=== PATIENT | male | born 1960 | race Caucasian/White ===

== ENCOUNTER 2024-07-19 13:14 | Inpatient (IN) | payer OTHER, MEDICARE, SELFPAY ==
[2024-07-18] VITALS (8 sets, daily range): BP systolic 101–125; BP diastolic 64–87; BMI 23.3; BMI 23.1
[2024-07-18 09:53] LABS: % Basophils 0.4 % (0-2); % Eosinophils 1.2 % (0-6); % Immature Granulocytes 0.4 % (0-0.5); % Lymphocytes 10.7 % (20.5-51.1); % Monocytes 11.2 % (1.7-9.3); % Neutrophils 76.1 % (42.2-75.2); Absolute Eosinophils 0.1 10^3/uL (0-0.7); Absolute Lymphocytes 0.6 10^3/uL (1.2-3.4); Absolute Monocytes 0.6 10^3/uL (0.1-0.6); Absolute Neutrophils 4.3 10^3/uL (1.4-6.5); Hematocrit 45.6 % (39.0-52.0); Hemoglobin 15.1 g/dL (13.0-18.0); Mean Corp Hgb Conc. 33.1 g/dL (33.0-37.0); Mean Corpuscular Volume 102.7 fL (80.0-94.0); Mean Platelet Volume 9.9 fL (7.4-10.4); Nucleated Red Blood Cells % 0 % (-); Platelet Count 176 10^3/uL (130-400); Red Blood Cell Count 4.44 10^6/uL (4.70-6.10); Red Cell Dist. Width 14.8 % (11.5-14.5); White Blood Cell Count 5.6 10^3/uL (4.8-10.8)
[2024-07-18 10:07] LABS: ALT (SGPT) 46 U/L (0-50); AST (SGOT) 24 U/L (17-59); Albumin 3.5 g/dl (3.5-5.0); Alkaline Phosphatase 70 U/L (38-126); Blood Urea Nitrogen 18 mg/dl (9-20); COVID-19 Antigen Negative (Negative); Calcium 8.6 mg/dl (8.4-10.2); Carbon Dioxide 31 mmol/L (22-30); Chloride 103 mmol/L (98-107); Glucose 130 mg/dl (70-99); Potassium 3.5 mmol/L (3.5-5.1); Sodium 141 mmol/L (135-145); Total Bilirubin 1.4 mg/dl (0.2-1.3); Total Protein 5.9 g/dl (6.3-8.2); eGFR > 60.00
--- NOTE | 2024-07-18 10:17 | ED.GENMED ---
History of Present Illness
General
Chief Complaint: Cough
Source: patient
Exam Limitations: none
Time Seen by Provider: 07/18/24 10:04
Nursing documentation reviewed up to this point in time: agreed with
History of Present Illness
History of Present Illness:
Patient is a 63-year-old male presents today for evaluation. Patient has a history of multiple myeloma on oral chemotherapy (lenalidomide )previous stem cell transplant on oral chemotherapy followed by [facility]
presents to the ED for evaluation.
Patient has had intermittent cough for the past 2 weeks. Family doctor treated him for pneumonia and initially put him on Augmentin 2 weeks ago however patient had severe diarrhea from that and stopped. Patient persistently feels weak has had a
cough no shortness of breath. encouraged patient to come to the ER for possible dehydration and for continued symptoms.
Patient reports overall he does feel much better than he did 2 weeks ago. He is trying drink fluids. He does have a mild cough still he denies any shortness of breath.
Past History
Past History
ED Past Medical History: Cancer (Multiple myeloma), HTN and Other (CKD)
ED Past Surgical History: Orthopedic and Other
Social History
Tobacco: Non-smoker
Alcohol: None
Drug: None
Personal:
Living: with family
Review of Systems
Review of Systems
Allergies reviewed?: Yes
Other source history: family
All Other Systems: ROS reviewed and negative except as documented in HPI and ROS
Constitutional: Reports fatigue (mild fatigue but overall improving from 2 wks ago )
EENT: Reports no symptoms
Respiratory: Reports cough; Denies trouble breathing
Cardiac: Reports no symptoms
ABD/GI: Reports no symptoms
: Reports no symptoms
Musculoskeletal: Reports no symptoms
Skin: Reports no symptoms
Neurological: Reports no symptoms
Psychiatric: Reports no symptoms
Phy Exam
General Physical Exam
General Presentation: no apparent distress
General age: appears stated age
General Skin: warm and dry
General Habitus: normal
General Mental: alert
General Hydration: appears well hydrated
Course
Orders/Labs/Results
Orders:
Orders
07/18/24 09:35
CXR2 [CR Chest - 2 Views ] Urgent
Comment:
Reason For Exam: cough
07/18/24 09:40
CMP [Comprehensive Metabolic Panel] Urgent
COVID-19 Antigen Urgent
Source: Nasal Swab
Complete Blood Count/With Diff Urgent
Influenza A+B Rapid Molecular Urgent
CELSA Source: Nasal Swab
Specimen Description:
07/18/24 10:33
0.9% Sodium Chloride 1000 ml [Nss] 1,000 ml IV BOLUS
07/18/24 12:12
Piperacillin/Tazo 3.375 Gram [Zosyn] 3.375 gram in 50 ml IV NOW
Vancomycin [Vancocin] 2,000 mg 0.9% Sodium Chloride 500 ml [Nss] 500 ml IV NOW
07/18/24 13:01
Admit/Transfer Patient As Directed
Co-Sign Provider:
Level of Care: Observation services
Assign to:: Medical/Surgical
Physician / Group: morro
Diagnosis: post viral pneumonia
Code Status As Directed
Resuscitation Status: Full Code
PRN Pain Medication Management As Directed
May give lesser potent ordered pain med per pt: Yes
preference::
Protocol:: Medication orders for pain may be administered in a
manner that supports deferring to patient preference
when the pt is:
- Requesting an ordered lesser potent pain medication.
Least to most potent pain medications are defined
as: acetaminophen < NSAID < tramadol < opioids
(morphine, oxycodone, hydromorphone).
- Requesting a lesser dose of the same medication IF
ORDERED.
- Requesting a less intrusive route of administration
if both routes are prescribed by the provider (PO <
IV).
07/18/24 13:02
Legionella Urinary Antigen Urgent
CELSA Source: Urine
Specimen Description:
Respiratory Culture/Gram Stain Urgent
CELSA Source: Sputum
Specimen Description:
Strep pneumoniae Antigen Urgent
CELSA Source: Urine
Specimen Description:
07/18/24 Dinner
Regular
At Your Request: Full Participation
07/18/24 15:37
MRSA Screen Routine
CELSA Source: Nose
Specimen Description:
07/18/24 15:49
0.9% Sodium Chloride 1000 ml [Nss] 1,000 ml IV 100 mls/hr
Acetaminophen [Tylenol] 650 mg PO Q4HPRN PRN
07/18/24 15:49
Activity As Directed
Activity Level: As Tolerated
Vital Signs As Directed
Frequency: Per unit guidelines
DX Deep Vein Thrombosis Video Routine
07/18/24 17:00
Cefepime HCl [Maxipime] 1,000 mg IV Q12H
Doxycycline Hyclate [Vibramycin] 100 mg 0.9% Sodium Chloride 250 ml [Nss] 250 ml IV Q12H
07/18/24 20:00
Acyclovir [Zovirax] 400 mg PO BID
Heparin 5,000 units SC Q12
07/19/24 06:00
Complete Blood Count/With Diff IN AM
Comprehensive Metabolic Panel IN AM
07/19/24 08:00
Ascorbic Acid [Vitamin C] 500 mg PO DAILY
Cholecalciferol (Vitamin D3) [VITAMIN D3 (cholecalciferol)] 25 mcg PO DAILY
Vitamin E 400 units PO DAILY
Abnormal Lab Results
07/18/24
09:40
RBC 4.44 L 10^6/uL
(4.70-6.10)
MCV 102.7 H fL
(80.0-94.0)
MCH 34.0 H pg
(27.0-31.0)
RDW 14.8 H %
(11.5-14.5)
Absolute Lymphs (auto) 0.6 L 10^3/uL
(1.2-3.4)
Neutrophils % 76.1 H %
(42.2-75.2)
Lymphocytes % 10.7 L %
(20.5-51.1)
Monocytes % 11.2 H %
(1.7-9.3)
Carbon Dioxide 31 H mmol/L
(22-30)
Glucose 130 H mg/dl
(70-99)
Total Bilirubin 1.4 H mg/dl
(0.2-1.3)
Total Protein 5.9 L g/dl
(6.3-8.2)
07/18/24 09:40
07/18/24 09:40
Vital Signs
Initial and Last Documented VS:
Initial Vital Signs
Temp Pulse Resp BP Pulse Ox
97.6 F 100 20 104/76 95
07/18/24 09:27 07/18/24 09:27 07/18/24 09:27 07/18/24 09:27 07/18/24 09:27
Last Documented Vital Signs
Temp Pulse Resp BP Pulse Ox
98.0 F 78 18 123/64 98
07/18/24 16:02 07/18/24 16:02 07/18/24 16:02 07/18/24 16:02 07/18/24 16:02
Building Principal consulted with Physician
Building Principal consulted with physician?: Yes
Name of Physician Consulted: Rodolfo
MDM/Problems Addressed
Differential Diagnosis Includes:
Not limited to influenza, pneumonia
MDM/Problems Addressed:
Patient is a 63-year-old male with history of multiple myeloma stem cell transplant on oral chemotherapy presents for cough for the past several weeks was on antibiotic, Augmentin then developed diarrhea persistent cough some mild fatigue. Patient
found to be flu positive x-ray reading by myself and ED physician shows bilateral pneumonia would recommend admission as patient is immunocompromise. His white count is normal he is not hypoxic and nontachycardic.
With patient being compromised and flu positive vancomycin and Zosyn ordered. Patient is on oral chemo we do not have that here in [place] pharmacy patient will bring from home.
*Critical Care Note
Total Time (30-74mins, 75-104mins- exclusive of procedures): Not Applicable
ED Attending Note
-
Portions of this chart may have been created with voice recognition software.� Occasional wrong word or��sound alike� substitutions may have occurred due to the inherent limitations of voice recognition software.
Discharge Plan
Departure
Patient Disposition: Admit
Date of Disposition: 07/18/24
Time of Disposition: 12:13
Admit to: Med/Surg
Admit to doctor: hospitalist
Presentation/result/management discussed w/ accepting MD/DO: Hospitalist
Patient with high blood pressure during this ER visit?: No
Condition: Fair
Covid-19: Not Applicable
Discharge Problem:
Influenza A, bilateral pneumonia
Interventions
Interventions:
*Risk Screen - Suicide Last Done: 07/18/24 11:16
*General Assessment Last Done: 07/18/24 11:16
*Neglect/Abuse Screening Last Done: 07/18/24 11:16
ED- Fall Risk Assessment Last Done: 07/18/24 11:16
*ED COVID-19 Vaccine History Last Done: 07/18/24 09:27
*Nursing Disposition Last Done: 07/18/24 15:55
ED- Pulmonary Assessment Last Done: 07/18/24 11:16
Discharge Date and Time
Discharge Date/Time: 07/18/24 15:57
[2024-07-18] MEDS: NSS 1000 IV ×2 (11:27→16:34)
[2024-07-18] MEDS: ZOSYN 50 IV (12:28)
[2024-07-18] MEDS: VANCOCIN 540 MG IV (12:41)
--- NOTE | 2024-07-18 13:05 | HPS.HSE ---
Family Physician
-
Family Physician: Tato iLndo
Chief Complaint
-
cough
History of Present Illness
63-year-old male past medical history of multiple myeloma on lenalidomide status post prior stem cell transplant followed at [place], pancytopenia, hypertension, CKD 3A, presenting for cough, weakness for the past 2 weeks. His family
doctor treated him with Augmentin which he took for 1 week and then developed diarrhea and stopped taking. He took Imodium for the diarrhea which is since resolved. He denies any fevers or chills. Denies shortness of breath. Denies chest pain.
Denies vomiting. He does not feel worse than his symptoms 2 weeks ago but he is not improving.
He denies smoking or alcohol use.
Medical History
Past Medical History
Past Medical History: Reports Other (multiple myeloma on lenalidomide status post prior stem cell transplant followed at [place], pancytopenia, hypertension, CKD 3A,)
Past Surgical History: Reports None
Social History
Tobacco: Non-smoker
Alcohol: None
Drug: None
Family History
Family History: Not pertinent
Allergies / Home Medications
Allergies reflects when Allergies were last updated in [employer].
Home Medications with original date entered in [employer]
Allergy/Medication List:
Allergies
Allergy/AdvReac Type Severity Reaction Status Date / Time
No Known Allergies Allergy Verified 07/18/24 09:33
Home Medications
acyclovir 400 mg tablet 400 mg PO BID 07/18/24
ascorbic acid (vitamin C) 500 mg tablet (Vitamin C) 500 mg PO DAILY 07/18/24
cholecalciferol (vitamin D3) 25 mcg (1,000 unit) tablet (Vitamin D3) 25 mcg PO DAILY 07/18/24
coQ10 (ubiquinol) 100 mg capsule 100 mg PO DAILY 07/18/24
ergocalciferol (vitamin D2) 400 unit capsule 10 mcg PO DAILY 07/18/24
lenalidomide 5 mg capsule 5 mg PO HS 07/18/24
turmeric 400 mg capsule 400 mg PO DAILY 07/18/24
vitamin E 268 mg (400 unit) capsule 268 mg PO DAILY 07/18/24
Review of Systems
-
History Source: Patient
A 12 point ROS was completed and negative except as noted: Yes
Constitutional: Reports No Symptoms
EENT: Reports No Symptoms
Respiratory: Reports See HPI
Cardiac: Reports No Symptoms
Abdomen/GI: Reports No Symptoms
: Reports No Symptoms
Musculoskeletal: Reports No Symptoms
Skin: Reports No Symptoms
Neurological: Reports No Symptoms
Endocrine: Reports No Symptoms
Hematologic/Lymphatic: Reports No Symptoms
Psych: Reports No Symptoms
Physical Exam
Vital Signs
Vital Signs
Temp Pulse Resp BP Pulse Ox
97.6 F 100 20 104/76 95
07/18/24 09:27 07/18/24 09:27 07/18/24 09:27 07/18/24 09:27 07/18/24 09:27
Physical Exam
General: Well Developed, Well Nourished and No Apparent Distress
HEENT: NormoCephalic, Moist mucous membranes and Atraumatic
Respiratory: Clear
Cardiac: S1/S2 and Regular Rhythm; No Murmur or Rub
GI: Soft, Non Tender, Non Distended and Normal Bowel Sounds; No Organomegaly
Rectal: Deferred by Provider
Musculoskeletal: No Clubbing, No Cyanosis and No Edema
Skin: No Rash
Neuro: Nonfocal/grossly intact
Laboratory Results
-
07/18/24 09:40
07/18/24 09:40
Laboratory Results
Total Bilirubin 1.4 mg/dl (0.2-1.3) H 07/18/24 09:40
AST 24 U/L (17-59) 07/18/24 09:40
ALT 46 U/L (0-50) 07/18/24 09:40
Alkaline Phosphatase 70 U/L (38-126) 07/18/24 09:40
Data Reviewed
-
Lab Data: Labs Reviewed by me
Old Records: Reviewed
Impression/Plan
-
IMPRESSION:
PLAN:
# Influenza A infection
# Postviral bacterial pneumonia
-Chest x-ray appears to show multifocal infiltrates, report pending
-Check sputum culture
-Check MRSA, Legionella, strep antigen
-Continue IV fluids
-Out of window for Tamiflu
-Given vancomycin/Zosyn in ER but will continue with cefepime/doxycycline as he did not receive atypical coverage
Multiple myeloma status post stem still transplant
-Hold Revlimid
-Continue prophylactic acyclovir
Essential hypertension
CKD 3A
-Renal function at baseline
Full code
DVT prophylaxis�heparin
Regular diet
--- NOTE | 2024-07-18 15:52 | EDRN ---
Patient taken to room 2136 on stretcher by certified scrub tech.
[2024-07-18] MEDS: STERILE WATER FOR INJECTION 10 ML IV (17:39)
[2024-07-18] MEDS: VIBRAMYCIN 260 MG IV (17:40)
[2024-07-18] MEDS: MAXIPIME 1000 MG IV (17:40)
[2024-07-18] MEDS: ZOVIRAX PO (21:22)
[2024-07-19] MEDS: NSS 1000 IV ×3 (03:07→21:35)
[2024-07-19] MEDS: VIBRAMYCIN 260 MG IV (05:03)
[2024-07-19] MEDS: MAXIPIME 1000 MG IV ×2 (05:27→17:44)
[2024-07-19] MEDS: STERILE WATER FOR INJECTION 10 ML IV ×2 (05:28→17:44)
[2024-07-19 06:42] LABS: % Basophils 0.6 % (0-2); % Eosinophils 2.5 % (0-6); % Immature Granulocytes 0.8 % (0-0.5); % Lymphocytes 18.4 % (20.5-51.1); % Monocytes 15.6 % (1.7-9.3); % Neutrophils 62.1 % (42.2-75.2); Absolute Eosinophils 0.1 10^3/uL (0-0.7); Absolute Lymphocytes 0.7 10^3/uL (1.2-3.4); Absolute Monocytes 0.6 10^3/uL (0.1-0.6); Absolute Neutrophils 2.2 10^3/uL (1.4-6.5); Hematocrit 38.6 % (39.0-52.0); Hemoglobin 12.8 g/dL (13.0-18.0); Mean Corp Hgb Conc. 33.2 g/dL (33.0-37.0); Mean Corpuscular Hgb 33.8 pg (27.0-31.0); Mean Corpuscular Volume 101.8 fL (80.0-94.0); Mean Platelet Volume 9.9 fL (7.4-10.4); Nucleated Red Blood Cells % 0 % (-); Platelet Count 161 10^3/uL (130-400); Red Blood Cell Count 3.79 10^6/uL (4.70-6.10); Red Cell Dist. Width 14.9 % (11.5-14.5); White Blood Cell Count 3.6 10^3/uL (4.8-10.8)
[2024-07-19 07:19] VITALS: BP 122/79
[2024-07-19 07:20] LABS: ALT (SGPT) 36 U/L (0-50); AST (SGOT) 21 U/L (17-59); Albumin 2.6 g/dl (3.5-5.0); Alkaline Phosphatase 60 U/L (38-126); Blood Urea Nitrogen 11 mg/dl (9-20); Calcium 7.5 mg/dl (8.4-10.2); Carbon Dioxide 26 mmol/L (22-30); Chloride 107 mmol/L (98-107); Estimated Creatinine Clearance 115 ml/min; Glucose 108 mg/dl (70-99); Potassium 3.2 mmol/L (3.5-5.1); Sodium 138 mmol/L (135-145); Total Bilirubin 1.1 mg/dl (0.2-1.3); Total Protein 4.6 g/dl (6.3-8.2); eGFR > 60.00
[2024-07-19] MEDS: VITAMIN E 400 UNITS PO (08:06)
[2024-07-19] MEDS: VITAMIN D3 (cholecalciferol) 25 MCG PO (08:06)
[2024-07-19] MEDS: ZOVIRAX 400 MG PO ×2 (08:06→21:34)
[2024-07-19] MEDS: VITAMIN C 500 MG PO (08:06)
--- NOTE | 2024-07-19 10:34 | CM ---
Addendum entered by Katlyn Zhou 07/19/24 16:05:
tt from UR - LOC changed to inpatient - IMM explained & signed. In chart
Original Note:
Met with patient at bedside.
Dx: post viral pneumonia, influenza A positive
PMH: multiple myeloma on lenalidomide status post prior stem cell transplant followed at [place], pancytopenia
OBS status
IA completed
Lives with in multi-story home, 0 steps to enter, flight of stairs to bed/bath
PLOF: Independent, no assistive device
Denies HH/Rehab
PCP: Tato Lindo
PHARMACY: [address], [place]
PLAN: home, no needs anticipated
states will transport
[2024-07-19] MEDS: KCL ELIXIR 40 MEQ PO (11:08)
--- NOTE | 2024-07-19 11:55 | W.PN.HOSP.TC ---
Today's Communication/Plan
-
f/u cultures
abx
k repletion
Assessment / Plan
Assessment / Plan
Physical Exam
General: Well Developed, Well Nourished and No Apparent Distress
HEENT: NormoCephalic, Moist mucous membranes and Atraumatic
Respiratory: Clear
Cardiac: S1/S2 and Regular Rhythm; No Murmur or Rub
GI: Soft, Non Tender, Non Distended and Normal Bowel Sounds; No Organomegaly
Rectal: Deferred by Provider
Musculoskeletal: No Clubbing, No Cyanosis and No Edema
Skin: No Rash
Neuro: Nonfocal/grossly intact
PLAN:
# Influenza A infection
# Postviral multifocal pneumonia
-Chest x-ray appears to show multifocal infiltrates, report pending
-Check sputum culture
-Check MRSA negative
- F/u Legionella, strep antigen
-Continue IV fluids
-Out of window for Tamiflu
-Given vancomycin/Zosyn in ER but will continue with cefepime/doxycycline as he did not receive atypical coverage
-will need repeat imaging outpatient to monitor improvement
#Leukopenia
�Probably secondary to acute infection
� Monitor
#Hypokalemia
Monitor and replete
Multiple myeloma status post stem still transplant
-Hold Revlimid
-Continue prophylactic acyclovir
-apparently on eliquis for dvt ppx
Essential hypertension
CKD 3A
-Renal function at baseline
Full code
DVT prophylaxis�Eliquis
Regular diet
Anticipated Discharge: Within 24 hours
Subjective/Interval History
-
Date of Service: July 19, 2024
No acute events overnight
Objective Data
-
Labs:
Laboratory Results
07/19/24
05:51
WBC 3.6 L
Hgb 12.8 L
Hct 38.6 L
Plt Count 161
Sodium 138
Potassium 3.2 L
Chloride 107
Carbon Dioxide 26
BUN 11
Creatinine 0.7
Glucose 108 H
Calcium 7.5 L
Total Bilirubin 1.1
AST 21
ALT 36
Alkaline Phosphatase 60
Vital Signs:
Vital Signs
Temp Pulse Resp BP Pulse Ox
98.1 F 78 18 122/79 97
07/19/24 07:19 07/19/24 07:19 07/19/24 07:19 07/19/24 07:19 07/19/24 07:19
I&O
07/18/24 07/19/24 07/20/24
06:59 06:59 06:59
Intake Total 1600 / 1600
Output Total 1050 / 1050
Balance 550 / 550
Review of Systems
-
History Source: Patient
All other systems: Not reviewed unless documented
Physical Exam
-
General: No Apparent Distress
HEENT: PERRLA
Respiratory: Clear to Auscultation
Cardiac: Regular Rhythm and S1/S2
GI: Soft and Nontender
Skin: Warm and Dry; Negative Rash
Neuro: AO x 3
Psych: Calm
Data Reviewed
-
Diagnostic Radiology: Report Reviewed by me
[2024-07-19 15:13] VITALS: BP 139/80
[2024-07-19] MEDS: VIBRAMYCIN 100 MG PO (21:34)
[2024-07-19] MEDS: ELIQUIS 2.5 MG PO (21:35)
[2024-07-19 22:50] VITALS: BP 95/64
[2024-07-20 07:05] VITALS: BP 130/91
[2024-07-20 07:24] VITALS: BP 130/91
[2024-07-20] MEDS: STERILE WATER FOR INJECTION IV (07:25)
[2024-07-20] MEDS: MAXIPIME IV (07:25)
[2024-07-20 07:45] LABS: Hematocrit 41.1 % (39.0-52.0); Hemoglobin 13.8 g/dL (13.0-18.0); Mean Corp Hgb Conc. 33.6 g/dL (33.0-37.0); Mean Corpuscular Hgb 34.2 pg (27.0-31.0); Platelet Count 161 10^3/uL (130-400); Red Blood Cell Count 4.03 10^6/uL (4.70-6.10); Red Cell Dist. Width 14.8 % (11.5-14.5); White Blood Cell Count 2.9 10^3/uL (4.8-10.8)
[2024-07-20 08:13] VITALS: BP 130/91
[2024-07-20 08:28] LABS: ALT (SGPT) 45 U/L (0-50); AST (SGOT) 25 U/L (17-59); Albumin 2.9 g/dl (3.5-5.0); Alkaline Phosphatase 63 U/L (38-126); Blood Urea Nitrogen 11 mg/dl (9-20); Calcium 8.3 mg/dl (8.4-10.2); Carbon Dioxide 26 mmol/L (22-30); Chloride 107 mmol/L (98-107); Estimated Creatinine Clearance 115 ml/min; Glucose 112 mg/dl (70-99); Potassium 3.6 mmol/L (3.5-5.1); Sodium 139 mmol/L (135-145); Total Bilirubin 1.2 mg/dl (0.2-1.3); Total Protein 5.1 g/dl (6.3-8.2); eGFR > 60.00
[2024-07-20] MEDS: ELIQUIS 2.5 MG PO (09:29)
[2024-07-20] MEDS: ZOVIRAX 400 MG PO (09:29)
[2024-07-20] MEDS: VITAMIN E 400 UNITS PO (09:29)
[2024-07-20] MEDS: VITAMIN C 500 MG PO (09:30)
[2024-07-20] MEDS: VIBRAMYCIN 100 MG PO (09:30)
[2024-07-20] MEDS: VITAMIN D3 (cholecalciferol) 25 MCG PO (09:30)
[2024-07-20 09:52] VITALS: BMI 23.1
--- NOTE | 2024-07-20 10:47 | W.PN.HOSP.TC ---
Addendum entered and electronically signed by Jozef Caban MD 07/20/24 17:07:
[id number]
Original Note:
Today's Communication/Plan
-
Discharge to complete antibiotic course
Follow-up CBC within 3 to 5 days
Repeat chest imaging with PCP/oncologist
Follow-up PCP, oncologist outpatient
Assessment / Plan
Assessment / Plan
Physical Exam
General: Well Developed, Well Nourished and No Apparent Distress
HEENT: NormoCephalic, Moist mucous membranes and Atraumatic
Respiratory: Clear
Cardiac: S1/S2 and Regular Rhythm; No Murmur or Rub
GI: Soft, Non Tender, Non Distended and Normal Bowel Sounds; No Organomegaly
Rectal: Deferred by Provider
Musculoskeletal: No Clubbing, No Cyanosis and No Edema
Skin: No Rash
Neuro: Nonfocal/grossly intact
PLAN:
# Influenza A infection
# Postviral multifocal pneumonia
-Chest x-ray appears to show multifocal infiltrates
�Sputum culture is negative
-MRSA negative
- F/u Legionella, strep antigen negative
-Out of window for Tamiflu
-Given vancomycin/Zosyn in ER but will continue with cefepime/doxycycline as he did not receive atypical coverage -discharged to complete total 5-day course of doxycycline, 10-day course of cefepime to cefdinir.
-will need repeat imaging outpatient to monitor improvement and to ensure this is in fact multifocal pneumonia with improvement versus pulmonary fibrosis�follow-up closely PCP/oncology
#Leukopenia
�Probably secondary to acute infection
� Monitor
� Follow-up CBC outpatient
#Hypokalemia
Monitor and replete
Multiple myeloma status post stem still transplant
-Hold Revlimid until antibiotic course completed
-Continue prophylactic acyclovir
-apparently on eliquis for dvt ppx
Essential hypertension
CKD 3A
-Renal function at baseline
Full code
DVT prophylaxis�Eliquis
Regular diet
More than 30 minutes spent in discharge including
Final examination of the patient
Summarizing hospital stay
Instructions for continuing care to all relevant caregivers
Preparation of discharge records, prescriptions, and referral forms
Total time spent (38 in minutes):
Anticipated Discharge: Today
Subjective/Interval History
-
Date of Service: July 20, 2024
No acute events, feels well
Objective Data
-
Labs:
Laboratory Results
07/20/24
06:18
WBC 2.9 L
Hgb 13.8
Hct 41.1
Plt Count 161
Sodium 139
Potassium 3.6
Chloride 107
Carbon Dioxide 26
BUN 11
Creatinine 0.7
Glucose 112 H
Calcium 8.3 L
Total Bilirubin 1.2
AST 25
ALT 45
Alkaline Phosphatase 63
Vital Signs:
Vital Signs
Temp Pulse Resp BP Pulse Ox
97.9 F 75 18 130/91 96
07/20/24 07:05 07/20/24 07:24 07/20/24 07:05 07/20/24 07:24 07/20/24 09:33
I&O
07/19/24 07/20/24 07/21/24
06:59 06:59 06:59
Intake Total 1600 / 1600 4020 / 4020
Output Total 1050 / 1050 1100 / 1100
Balance 550 / 550 2920 / 2920
Review of Systems
-
History Source: Patient
All other systems: Not reviewed unless documented
Physical Exam
-
General: No Apparent Distress
HEENT: PERRLA
Respiratory: Clear to Auscultation
Cardiac: Regular Rhythm and S1/S2
GI: Soft and Nontender
Skin: Warm and Dry; Negative Rash
Neuro: AO x 3
Psych: Calm
Data Reviewed
-
Diagnostic Radiology: Report Reviewed by me
--- NOTE | 2024-07-20 10:49 | CM ---
plan: d/c home no needs.
--- NOTE | 2024-07-20 10:50 | W.DS.TRANS ---
DC Summary - [employer]
-
Discharge Instructions:
Discharge Diagnosis/Procedures influenza pneumonia
Diet Low Cholesterol,Low Fat
Blood Work cbc in 3-5 days
Others Tests Will need repeat imaging of the chest including
possible chest CT to evaluate improvement/
resolution of pulmonary findings which are
suspected to be due to multifocal pneumonia.
Pulmonary fibrosis cannot be excluded and
therefore in setting of chemotherapy, imperative
to follow-up with repeat imaging with PCP,
oncology.
Instructions:
Stand-Alone Forms:
Changes to Home Medications: Yes
Discharge Medications:
DC Medications w/original date entered in [employer]
acyclovir 400 mg tablet 400 mg PO BID Infection 07/18/24
ascorbic acid (vitamin C) 500 mg tablet (Vitamin C) 500 mg PO DAILY Supplement 07/18/24
cholecalciferol (vitamin D3) 25 mcg (1,000 unit) tablet (Vitamin D3) 25 mcg PO DAILY Supplement 07/18/24
coQ10 (ubiquinol) 100 mg capsule 100 mg PO DAILY Supplement 07/18/24
ergocalciferol (vitamin D2) 400 unit capsule 10 mcg PO DAILY Supplement 07/18/24
lenalidomide 5 mg capsule 5 mg PO HS Rheumatoid Arthritis 07/18/24
turmeric 400 mg capsule 400 mg PO DAILY Supplement 07/18/24
vitamin E 268 mg (400 unit) capsule 268 mg PO DAILY Supplement 07/18/24
apixaban 2.5 mg tablet (Eliquis) 2.5 mg PO DAILY #0 tabs 07/20/24
cefdinir 300 mg capsule 300 mg PO Q12H 8 days #16 caps 07/20/24
doxycycline hyclate 100 mg capsule 100 mg PO BID 3 days #6 caps 07/20/24
Home Medication Changes
cefdinir 300 mg capsule 300 mg PO Q12H 8 days #16 caps 07/20/24
doxycycline hyclate 100 mg capsule 100 mg PO BID 3 days #6 caps 07/20/24
Pending Results: No
== END 2024-07-20 13:30 | disposition home or self-care (01) | DRG 194 ==
LOC: 2 NORTH 13:14
PROVIDERS: Emergency Medicine; ADMITTING PHYSICIAN Hospitalist; ATTENDING PHYSICIAN Internal Medicine; EMERGENCY PHYSICIAN Emergency Medicine; FAMILY PHYSICIAN Family Medicine
DX: J10.00 Influenza due to other identified influenza virus with unspecified type of pneumonia (principal); C90.00 Multiple myeloma not having achieved remission; Z94.84 Stem cells transplant status; I12.9 Hypertensive chronic kidney disease with stage 1 through stage 4 chronic kidney disease, or unspecified chronic kidney disease; N18.31 Chronic kidney disease, stage 3a; E87.6 Hypokalemia; Z79.61 Long term (current) use of immunomodulator; Z20.822 Contact with and (suspected) exposure to COVID-19
CPT/HCPCS: 71046; 80053; 85025; 85027; 87070; 87205; 87449; 87502; 87811; 87899; 96365; 96366; 96367; 99285

== ENCOUNTER → 2024-08-13 14:30 | Outpatient (REF) | payer OTHER, MEDICARE, SELFPAY | LOC: HWRAD 14:30 | PROVIDERS: ATTENDING PHYSICIAN Family Medicine | DX: J18.9 Pneumonia, unspecified organism (principal); R05.9 Cough, unspecified | CPT/HCPCS: 71046 ==